=== PATIENT | male | born 1970 | race Asian ===

== ENCOUNTER → 2020-04-01 | Outpatient (REF) | payer OTHER, SELFPAY | LOC: M WUC 11:21 | PROVIDERS: ATTEND Nurse Practitioner Family | DX: Z20.828 Contact with and (suspected) exposure to other viral communicable diseases (principal) ==

== ENCOUNTER 2021-03-19 18:58 | Emergency (ER) | payer OTHER ==
[~2021-03-19] VITALS: Ht 167.6 cm; Wt 55.5 kg
--- NOTE | 2021-03-19 20:14 | REP ---
INDICATION: RIGHT GROIN AND TESTICLULAR PAIN COMPARISON: None. TECHNIQUE: Hong scale and color Doppler evaluation using linear and curved array transducer with color Doppler evaluation. FINDINGS: The testicles and epididymi are relatively normal in contour, size, echogenicity, vascularity and overall appearance. Incidental 3 mm left epididymal head cyst and 4 mm cyst at the appendix testis. There is no evidence for intratesticular mass lesion, infectious/inflammatory process, or torsion. No obvious hydroceles or varicoceles are identified. Right testicle measures 4.3 x 1.9 x 2.6 cm. Left testicle measures 4.3 x 1.5 x 2.5 cm. IMPRESSION: No obvious acute scrotal pathology appreciated. <Electronically signed by Bradly Kramer > 03/19/212009
--- NOTE | 2021-03-19 20:16 | REP ---
INDICATION: pain right inguinal side COMPARISON: None. TECHNIQUE: Grayscale B-mode ultrasound using linear high-frequency transducer. FINDINGS: Ultrasound examination of the right inguinal region demonstrates a very small non reducible fat containing hernia with a peritoneal defect measuring roughly 12-13 mm and essentially unchanged on Valsalva. Ultrasound examination of the contralateral left inguinal region for comparison demonstrates normal structures without hernia. IMPRESSION: Small fat containing right inguinal hernia. <Electronically signed by Bradly Kramer > 03/19/212011
[2021-03-19] MEDS ORDERED: KETOROLAC 60MG 2ML VIAL IM ONE (21:55)
[2021-03-19] MEDS ORDERED: NAPR-837 PO (21:57)
[2021-03-19 22:48] VITALS: BP 157/84
== END 2021-03-19 22:55 | disposition home or self-care (01) ==
LOC: M ED 18:58 → MERGE 18:58 → M ED 22:55
DX: K40.90 Unilateral inguinal hernia, without obstruction or gangrene, not specified as recurrent (principal)
CPT/HCPCS: 76857; 76870; 93976; 96372; 99283; J1885

== ENCOUNTER → 2021-04-12 | Outpatient (CLI) | payer OTHER ==
[~2021-04-12] MED LIST: NAPR-837 PO
[2021-04-12 12:05] LABS: BASO # 0.1 10^3/uL (0.0-0.2); BASO % 0.5 % (0.0-1.0); EOS # 0.6 10^3/uL (0.0-0.5); HEMATOCRIT 45.6 % (42.0-52.0); HEMOGLOBIN 15.4 g/dl (13.5-17.5); LYMPH # 2.2 10^3/uL (1.5-5.0); LYMPH % 23.9 % (24.0-44.0); MEAN CORPUSCULAR HEMOGLOBIN 31.4 pg (27.0-33.0); MEAN CORPUSCULAR HGB CONC 33.8 g/dl (32.0-36.5); MEAN CORPUSCULAR VOLUME 92.9 fl (80.0-96.0); MONO # 0.4 10^3/uL (0.0-0.8); MONO % 4.1 % (2.0-8.0); NEUTROPHILS # 6.1 10^3/uL (1.5-8.5); NEUTROPHILS % 65.2 % (36.0-66.0); PLATELET COUNT, AUTOMATED 246 10^3/uL (150-450); RED BLOOD COUNT 4.91 10^6/uL (4.30-6.10); WHITE BLOOD COUNT 9.4 10^3/uL (4.0-10.0)
[2021-04-12 12:48] LABS: ALBUMIN 3.8 GM/DL (3.2-5.2); ALT/SGPT 44 U/L (12-78); BILIRUBIN,TOTAL 0.3 MG/DL (0.2-1.0); BLOOD UREA NITROGEN 22 MG/DL (7-18); CALCIUM LEVEL 8.8 MG/DL (8.5-10.1); CARBON DIOXIDE LEVEL 30 MEQ/L (21-32); CHLORIDE LEVEL 105 MEQ/L (98-107); CHOLESTEROL LEVEL 217 MG/DL (<200); CHOLESTEROL RISK RATIO 4.428 (<5); CREATININE FOR GFR 0.89 MG/DL (0.70-1.30); GLOMERULAR FILTRATION RATE > 60.0 (>56); GLUCOSE, FASTING 108 MG/DL (70-100); HDL CHOLESTEROL 49 MG/DL (>40); HEPATITIS B SURFACE ANTIBODY POSITIVE (POSITIVE); LDL CHOLESTEROL 133 MG/DL (<100); NON-HDL-C 168 MG/DL; POTASSIUM SERUM 4.2 MEQ/L (3.5-5.1); SODIUM LEVEL 139 MEQ/L (136-145); TOTAL PROTEIN 7.1 GM/DL (6.4-8.2); TRIGLYCERIDES LEVEL 176 MG/DL (<150)
[2021-04-12 12:55] LABS: HEMOGLOBIN A1c 5.7 %
[2021-04-12 12:57] LABS: HEPATITIS B SURFACE ANTIGEN NEGATIVE (NEGATIVE)
[2021-04-12 13:25] LABS: HEPATITIS C VIRUS ABY INDEX < 0.0 INDEX (<0.8)
[2021-04-13 04:07] LABS: HEPATITIS A IgG TOTAL Positive (Negative); HEPATITIS B CORE ANTIBODY IGG Positive (Negative)
== END ==
LOC: M WUC 09:47
PROVIDERS: ATTEND Nurse Practitioner Family
DX: Z11.3 Encounter for screening for infections with a predominantly sexual mode of transmission (principal); Z12.5 Encounter for screening for malignant neoplasm of prostate; Z00.00 Encounter for general adult medical examination without abnormal findings; Z13.220 Encounter for screening for lipoid disorders

== ENCOUNTER → 2021-06-21 | Outpatient (REF) | payer OTHER ==
[2021-06-21 13:33] LABS: APPEARANCE, URINE CLEAR (CLEAR); BACTERIA, URINE AUTO NEGATIVE (NEGATIVE); BILIRUBIN, URINE AUTO NEGATIVE (NEGATIVE); BLOOD, URINE BLOOD NEGATIVE (NEGATIVE); CALCIUM OXALATE CRYSTALS SMALL; COLOR, URINE YELLOW (YELLOW); GLUCOSE, URINE (UA) AUTO 1+ mg/dL (NEGATIVE); KETONE, URINE AUTO NEGATIVE (NEGATIVE); LEUKOCYTE ESTERASE, URINE AUTO NEGATIVE (NEGATIVE); MUCUS, URINE SMALL (NEGATIVE); NITRITE, URINE AUTO NEGATIVE (NEGATIVE); PROTEIN, URINE AUTO NEGATIVE (NEGATIVE); RBC, URINE AUTO 0 /HPF (0-3); SPECIFIC GRAVITY URINE AUTO 1.018 (1.002-1.035); SQUAMOUS EPITHELIAL CELL UR AU 0 /HPF (0-6); UROBILINOGEN, URINE AUTO 0.2 mg/dL (0.0-2.0); WBC, URINE AUTO 0 /HPF (0-3)
== END ==
LOC: M SMT 13:02
PROVIDERS: ATTEND Urology
DX: N45.1 Epididymitis (principal)

== ENCOUNTER → 2021-09-27 | Outpatient (CLI) | payer OTHER | LOC: M LABSMTC 12:28 | PROVIDERS: ATTEND Anesthesiology | DX: Z01.818 Encounter for other preprocedural examination (principal); Z11.52 Encounter for screening for COVID-19 ==

== ENCOUNTER 2021-10-02 11:41 | Day surgery (SDC) | payer OTHER ==
[~2021-10-02] VITALS: Ht 167.6 cm; Wt 53.3 kg
[~2021-10-02 11:41] MED LIST changes: +NS 1,000 ML IV ONE
--- OUTSIDE RECORDS SUMMARY | 2021-10-02 11:46 | CCD ---
Author Author [facility] Organization [facility] Address Unknown Phone Unavailable Care Team Providers Care Aba Tutor Name Role Phone Charlebois, A Debora RPA C Unavailable Unavailable Charlebois, A Debora RPA C Unavailable Unavailable Charlebois, A Debora RPA C Unavailable Unavailable Charlebois, A Debora RPA C Unavailable Unavailable Charlebois, A Debora RPA C Unavailable Unavailable Charlebois, A Debora RPA C Unavailable Unavailable Charlebois, A Debora RPA C Unavailable Unavailable Charlebois, A Debora RPA C Unavailable Unavailable Charlebois, A Debora RPA C Unavailable Unavailable Charlebois, A Debora RPA C Unavailable Unavailable Charlebois, A Debora RPA C Unavailable Unavailable Charlebois, A Debora RPA C Unavailable Unavailable Charlebois, A Debora RPA C Unavailable Unavailable Charlebois, A Debora RPA C Unavailable Unavailable Charlebois, A Debora RPA C Unavailable Unavailable Charlebois, A Debora RPA C Unavailable Unavailable Charlebois, A Debora RPA C Unavailable Unavailable Charlebois, A Debora RPA C Unavailable Unavailable Charlebois, A Debora RPA C Unavailable Unavailable Charlebois, A Debora RPA C Unavailable Unavailable Charlebois, A Debora RPA C Unavailable Unavailable Charlebois, A Debora RPA C Unavailable Unavailable Charlebois, A Debora RPA C Unavailable Unavailable Charlebois, A Debora RPA C Unavailable Unavailable Charlebois, A Debora RPA C Unavailable Unavailable Charlebois, A Debora RPA C Unavailable Unavailable Charlebois, A Debora RPA C Unavailable Unavailable Charlebois, A Debora RPA C Unavailable Unavailable Charlebois, A Debora RPA C Unavailable Unavailable Charlebois, A Debora RPA C Unavailable Unavailable Charlebois, A Debora RPA C Unavailable Unavailable Charlebois, A Debora RPA C Unavailable Unavailable Charlebois, A Debora RPA C Unavailable Unavailable Paolo Zamudio JR, MD Unavailable Unavailable Paolo Zamudio JR, MD Unavailable Unavailable Paolo Zamudio JR, MD Unavailable Unavailable Paolo Zamudio JR, MD Unavailable Unavailable Paolo Zamudio JR, MD Unavailable Unavailable Paolo Zamudio JR, MD Unavailable Unavailable Poalo Zamudio JR, MD Unavailable Unavailable Paolo Zamudio JR, MD Unavailable Unavailable Paolo Zamudio JR, MD Unavailable Unavailable Paolo Zamudio JR, MD Unavailable Unavailable Paolo Zamudio JR, MD Unavailable Unavailable Paolo Zamudio JR, MD Unavailable Unavailable Paolo Zamudio JR, MD Unavailable Unavailable Paolo Zamudio JR, MD Unavailable Unavailable Paolo Zamudio JR, MD Unavailable Unavailable Paolo Zamudio JR, MD Unavailable Unavailable Paolo Zamudio JR, MD Unavailable Unavailable Paolo Zamudio JR, MD Unavailable Unavailable Paolo Zamudio JR, MD Unavailable Unavailable Paolo Zamudio JR, MD Unavailable Unavailable Paolo Zamudio JR, MD Unavailable Unavailable Paolo Zamudio JR, MD Unavailable Unavailable Paolo Zamudio JR, MD Unavailable Unavailable Paolo Zamudio JR, MD Unavailable Unavailable Paolo Zamudio JR, MD Unavailable Unavailable Paolo Zamudio JR, MD Unavailable Unavailable Paolo Zamudio JR, MD Unavailable Unavailable Paolo Zamudio JR, MD Unavailable Unavailable Paolo Zamudio JR, MD Unavailable Unavailable Paolo Zamudio JR, MD Unavailable Unavailable Paolo Zamudio JR, MD Unavailable Unavailable Paolo Zamudio JR, MD Unavailable Unavailable Paolo Zamudio JR, MD Unavailable Unavailable Paolo Zamudio JR, MD Unavailable Unavailable Paolo Zamudio JR, MD Unavailable Unavailable Paolo Zamudio JR, MD Unavailable Unavailable Paolo Zamudio JR, MD Unavailable Unavailable Paolo Zamudio JR, MD Unavailable Unavailable Robb JR, J Kevin MD Unavailable Unavailable Robb JR, J Kevin MD Unavailable Unavailable Robb JR, J Kevin MD Unavailable Unavailable Robb JR, J Kevin MD Unavailable Unavailable Robb JR, J Kevin MD Unavailable Unavailable Robb JR, J Kevin MD Unavailable Unavailable Robb JR, J Kevin MD Unavailable Unavailable Robb JR, J Kevin MD Unavailable Unavailable Robb JR, J Kevin MD Unavailable Unavailable Robb JR, J Kevin MD Unavailable Unavailable Robb JR, J Kevin MD Unavailable Unavailable Robb JR, J Kevin MD Unavailable Unavailable Robb JR, J Kvein MD Unavailable Unavailable Robb JR, J Kevin MD Unavailable Unavailable Robb JR, J Kevin MD Unavailable Unavailable Robb JR, J Kevin MD Unavailable Unavailable Robb JR, J Kevin MD Unavailable Unavailable Robb JR, J Kevin MD Unavailable Unavailable Re-disclosure Warning The records that you are about to access may contain information from federally-assisted alcohol or drug abuse programs. If such information is present, then the following federally mandated warning applies: This information has been disclosed to you from records protected by federal confidentiality rules (42 CFR part 2). The federal rules prohibit you from making any further disclosure of this information unless further disclosure is expressly permitted by the written consent of the person to whom it pertains or as otherwise permitted by 42 CFR part 2. A general authorization for the release of medical or other information is NOT sufficient for this purpose. The Federal rules restrict any use of the information to criminally investigate or prosecute any alcohol or drug abuse patient.The records that you are about to access may contain highly sensitive health information, the redisclosure of which is protected by Article 27-F of the [facility] Public Health law. If you continue you may have access to information: Regarding HIV / AIDS; Provided by facilities licensed or operated by the [facility] Office of Mental Health; or Provided by the [facility] Office for People With Developmental Disabilities. If such information is present, then the following [facility] mandated warning applies: This information has been disclosed to you from confidential records which are protected by state law. State law prohibits you from making any further disclosure of this information without the specific written consent of the person to whom it pertains, or as otherwise permitted by law. Any unauthorized further disclosure in violation of state law may result in a fine or intermediate sentence or both. A general authorization for the release of medical or other information is NOT sufficient authorization for further disc losure. Encounters Encounter Providers Location Date Indications Data Source(s ) Outpatient Attender: Debora Winnie Burris/Emily/Ignacio stephens/Janine 06/22/2021 08:30:00 AM EDT MEDENT ([facility] PRICILA Novak) [place] [address] [address] 06/21/2021 12:00:00 AM EDT eCW1 ([facility]) [place] [address] [address] 05/24/2021 12:00:00 AM EDT eCW1 ([facility]) [place] [address] [facility] [address] 05/01/2021 12:00:00 AM EDT eCW1 ([facility]) Unknown [address] [facility] [address] 04/28/2021 12:00:00 AM EDT eCW1 ([facility]) Outpatient Attender: Kevin Burris/Emily/Eric/Karolina dl 04/19/2021 11:15:00 AM EDT MEDENT ([facility] PRICIAL Ford) [place] [address] [facility] [address] 04/14/2021 12:00:00 AM EDT eCW1 ([facility]) [place] [address] [facility] [address] 04/13/2021 12:00:00 AM EDT eCW1 ([facility]) [place] [address] [facility] [address] 04/10/2021 12:00:00 AM EDT eCW1 ([facility]) [place] [address] [facility] [address] 04/10/2021 12:00:00 AM EDT eCW1 ([facility]) Immunizations Vaccine Date Status Description Data Source(s) COVID-19 VACCINE Moderna 04/06/2021 12:00:00 AM EDT completed [facility] Vaccine Series Complete: YESThis Data wa s Submitted to [facility] Via [employer]. COVID-19 VACCINE Moderna 03/09/2021 12:00:00 AM EDT completed [facility] Vaccine Series Complete: NOThis Data was Submitted to [facility] Via [employer]. Medications Medication Brand Name Start Date Product Form Dose Route Admi nistrative Instructions Pharmacy Instructions Status Indications Reaction Description Data Source(s) Omeprazole 20 MG Delayed Release Oral Capsule Omeprazole 06/22/2021 12:00:00 AM EDT ORAL active MEDENT ([facility], ) Magnesium Hydroxide 80 MG/ML Oral Suspension Milk Of Magnesi a 06/22/2021 12:00:00 AM EDT ORAL active M EDENT ([facility], ) POLYETHYLENE GLYCOL 3350 142 MG/ML Oral Solution [Miralax] M iralax 06/22/2021 12:00:00 AM EDT active M EDENT ([facility], ) Sulfamethoxazole 800 MG / Trimethoprim 1 60 MG Oral Tablet [Bactrim] Bactrim DS 800-160 MG Bactrim DS 800-160 MG 06/21/2021 12:00:00 AM EDT 1.0 {table t} active Bactrim DS 800-160 MG eCW1 ( [facility]) Sulfamethoxazole 800 MG / Trimethoprim 1 60 MG Oral Tablet [Bactrim] Bactrim DS 800-160 MG Bactrim DS 800-160 MG 06/21/2021 12:00:00 AM EDT 1.0 {table t} active Bactrim DS 800-160 MG eCW1 ( [facility]) No Active Medications 05/29/2021 12:00:00 AM EDT completed MEDENT ([facility], ) Sulfamethoxazole 800 MG / Trimethoprim 1 60 MG Oral Tablet [Bactrim] Bactrim DS 800-160 MG Bactrim DS 800-160 MG 05/24/2021 12:00:00 AM EDT 1.0 {table t} active Bactrim DS 800-160 MG eCW1 ( [facility]) Sulfamethoxazole 800 MG / Trimethoprim 1 60 MG Oral Tablet [Bactrim] Bactrim DS 800-160 MG Bactrim DS 800-160 MG 05/24/2021 12:00:00 AM EDT 1.0 {table t} active Bactrim DS 800-160 MG eCW1 ( [facility]) Ciprofloxacin 500 MG Oral Tablet [Cipro] Cipro 04/19/2021 12:00: 00 AM EDT ORAL completed MEDENT ([facility], ) Ciprofloxacin 250 MG Oral Tablet [Cipro] Cipro 04/19/2021 12:00: 00 AM EDT ORAL completed MEDENT ([facility]) No Active Medications 04/19/2021 12:00:00 AM EDT completed MEDENT ([facility]) Insurance Providers Payer name Policy type / Coverage type Policy ID Covered libertarian ID Covered libertarian's relationship to abarca Policy Abarca Plan Information [facility] [id number] SP [id number] [facility] [id number] SP [id number] [id number] [employer]SA UNINSURED FUND [id number] SP [id number] SELF PAY ONLY [id number] SP [id number] Problems, Conditions, and Diagnoses No Information Surgeries/Procedures Procedure Description Date Indications Data Source(s) OFFICE OUTPATIENT NEW 45 MINUTES 06/22/2021 12:00:00 A M EDT MEDENT ([facility]) OFFICE OUTPATIENT NEW 45 MINUTES 04/19/2021 12:00:00 A M EDT MEDENT ([facility]) Results ID Date Data Source [id number] 09/27/2021 10:30:00 AM EST [facility] Name Value Range Interpretation Code Description Data Minda rce(s) Supporting Document(s) SARS-CoV-2 (COVID-19) RNA [Presence] in Respiratory specimen by HAJA with probe detection Not Detected [facility] This lab was ordered by [facility] and reported by [employer] ID Date Data Source UA URINALYSIS 06/21/2021 12:00:00 AM EDT eCW1 ([facility]) Name Value Range Interpretation Code Description Data Minda rce(s) Supporting Document(s) UA URINALYSIS eCW1 ([facility]) ID Date Data Source LIPID PANEL (CARDIAC RISK) 04/12/2021 12:00:00 AM EDT eCW1 ( [facility]) Name Value Range Interpretation Code Description Data Minda rce(s) Supporting Document(s) Cholesterol [Moles/volume] in Serum or Plasma 217 <200 CHOLESTEROL LEVEL eCW1 ([facility]) Cholesterol in HDL [Moles/volume] in Serum or Plasma 49 >40 HDL CHOLESTEROL eCW1 ([facility]) Triglyceride [Mass/volume] in Serum or Plasma by calculation 176 <150 TRIGLYCERIDES LEVEL eCW1 ([facility]) 4.428 <5 CHOLESTEROL RISK RATIO eCW1 ([facility]) Cholesterol in LDL [Mass/volume] in Serum or Plasma by calculation 133 <100 LDL CHOLESTEROL eCW1 ([facility]) 168 NON-HDL-C eCW1 ([facility]) ID Date Data Source [id number] 04/12/2021 12:00:00 AM EDT eCW1 ([facility]) Name Value Range Interpretation Code Description Data Minda rce(s) Supporting Document(s) Hemoglobin A1c/Hemoglobin.total in Blood 5.7 HEMOGLOBIN A1c eCW1 ([facility]) ID Date Data Source HEPATITIS B SURFACE ANTIBODY 04/12/2021 12:00:00 AM EDT eCW1 ([facility]) Name Value Range Interpretation Code Description Data Minda rce(s) Supporting Document(s) POSITIVE POSITIVE HEPATITIS B SURFACE ANTIB ASHISH eCW1 ([facility]) ID Date Data Source HEPATITIS B CORE ANTIBODY IGG 04/12/2021 12:00:00 AM EDT eCW 1 ([facility]) Name Value Range Interpretation Code Description Data Minda rce(s) Supporting Document(s) Positive Negative HEPATITIS B CORE ANTIBODY IGG eCW1 ([facility]) ID Date Data Source HEPATITIS A IgG 04/12/2021 12:00:00 AM EDT eCW1 ([facility]) Name Value Range Interpretation Code Description Data Minda rce(s) Supporting Document(s) Positive Negative HEPATITIS A IgG TOTAL eCW 1 ([facility]) ID Date Data Source PSA SCREENING 04/12/2021 12:00:00 AM EDT eCW1 ([facility]) Name Value Range Interpretation Code Description Data Minda rce(s) Supporting Document(s) 0.97 < 4.00 PSA SCREENING eCW1 ([facility]) ID Date Data Source HEPATITIS C ANTIBODY INDEX 04/12/2021 12:00:00 AM EDT eCW1 ( [facility]) Name Value Range Interpretation Code Description Data Minda rce(s) Supporting Document(s) < 0.0 <0.8 HEPATITIS C VIRUS MORGAN IND EX eCW1 ([facility]) ID Date Data Source HEPATITIS B SURFACE ANTIGEN 04/12/2021 12:00:00 AM EDT eCW1 ([facility]) Name Value Range Interpretation Code Description Data Minda rce(s) Supporting Document(s) NEGATIVE NEGATIVE HEPATITIS B SURFACE ANTIG EN eCW1 ([facility]) ID Date Data Source Comprehensive Metabolic Profile (CMP) 04/12/2021 12:00:00 AM EDT eCW1 ([facility]) Name Value Range Interpretation Code Description Data Minda rce(s) Supporting Document(s) 0.89 0.70-1.30 CREATININE FOR GFR eCW1 ([facility]) 108 70-100 GLUCOSE, FASTING eCW1 ([facility]) 22 7-18 BLOOD UREA NITROGEN eCW1 (On license of [facility]) 4.2 3.5-5.1 POTASSIUM SERUM eCW1 ([facility]) > 60.0 >56 GLOMERULAR FILTRATION RATE eCW 1 ([facility]) 139 136-145 SODIUM LEVEL eCW1 ([facility]) 105 98-107 CHLORIDE LEVEL eCW1 ([facility]) 8.8 8.5-10.1 CALCIUM LEVEL eCW1 ([facility]) 30 21-32 CARBON DIOXIDE LEVEL eCW1 (Replaced by [facility]) 44 12-78 ALT/SGPT eCW1 ([facility]) 144 45-117 ALKALINE PHOSPHATASE eCW1 (Replaced by [facility]) 0.3 0.2-1.0 BILIRUBIN,TOTAL eCW1 ([facility]) 29 7-37 AST/SGOT eCW1 ([facility]) 7.1 6.4-8.2 TOTAL PROTEIN eCW1 ([facility]) 1.2 ALBUMIN/GLOBULIN RATIO eCW1 ([facility]) 3.8 3.2-5.2 ALBUMIN eCW1 ([facility]) ID Date Data Source CBC with Differential 04/12/2021 12:00:00 AM EDT eCW1 ([facility]) Name Value Range Interpretation Code Description Data Minda rce(s) Supporting Document(s) 9.4 4.0-10.0 WHITE BLOOD COUNT eCW1 ([facility]) 4.91 4.30-6.10 RED BLOOD COUNT eCW1 ([facility]) 45.6 42.0-52.0 HEMATOCRIT eCW1 ([facility]) 15.4 13.5-17.5 HEMOGLOBIN eCW1 ([facility]) 92.9 80.0-96.0 MEAN CORPUSCULAR VOLUME e CW1 ([facility]) 246 150-450 PLATELET COUNT, AUTOMATED eCW1 ([facility]) 33.8 32.0-36.5 MEAN CORPUSCULAR HGB CONC eCW1 ([facility]) 31.4 27.0-33.0 MEAN CORPUSCULAR HEMOGLOB IN eCW1 ([facility]) 12.1 11.5-14.5 RED CELL DISTRIBUTION WID TH eCW1 ([facility]) 23.9 24.0-44.0 LYMPH % eCW1 ([facility]) 65.2 36.0-66.0 NEUTROPHILS % eCW1 ([facility]) 4.1 2.0-8.0 MONO % eCW1 ([facility]) 6.0 0.0-3.0 EOS % eCW1 ([facility]) 0.5 0.0-1.0 BASO % eCW1 ([facility]) 6.1 1.5-8.5 NEUTROPHILS # eCW1 ([facility]) 0.4 0.0-0.8 MONO # eCW1 ([facility]) 2.2 1.5-5.0 LYMPH # eCW1 ([facility]) 0.6 0.0-0.5 EOS # eCW1 ([facility]) 0.1 0.0-0.2 BASO # eCW1 ([facility]) Procedure Social History Code Duration Value Status Description Data Source(s ) Smoking 06/21/2021 12:00:00 AM EDT Current Smoker completed Curre nt Smoker eCW1 ([facility]) Smoking 06/21/2021 12:00:00 AM EDT Current Smoker completed Curre nt Smoker eCW1 ([facility]) Smoking 04/10/2021 12:00:00 AM EDT Current Smoker completed Curre nt Smoker eCW1 ([facility]) Smoking 04/10/2021 12:00:00 AM EDT Current Smoker completed Curre nt Smoker eCW1 ([facility]) Smoking 04/10/2021 12:00:00 AM EDT Current Smoker completed Curre nt Smoker eCW1 ([facility]) Smoking 04/10/2021 12:00:00 AM EDT Current Smoker completed Curre nt Smoker eCW1 ([facility]) Smoking 04/10/2021 12:00:00 AM EDT Current Smoker completed Curre nt Smoker eCW1 ([facility]) Smoking 04/10/2021 12:00:00 AM EDT Current Smoker completed Curre nt Smoker eCW1 ([facility]) Vital Signs ID Date Data Source UNK Name Value Range Interpretation Code Description Data Source(s) Systolic blood pressure 110 mm[Hg] 110 mm[Hg] M EDLAURA ([facility], ) Diastolic blood pressure 72 mm[Hg] 72 mm[Hg] MEDLAURA ([facility]) Body height 66 [in_i] 66 [in_i] DONITA ([facility]) 5'6" Body weight 124.00 [lb_av] 124.00 [lb_av] MEDEN T ([facility]) Body mass index (BMI) [Ratio] 20.0 kg/m2 20.0 k g/m2 MEDENT ([facility]) [place] body weight 142 [lb_av] 142 [lb_av] MEDEN T ([facility]) Body weight 56.246 kg 56.246 kg [facility] Body surface area Derived from formula 1.63 m2 1.63 m2 MEDENT ([facility]) Body weight 120 [lb_av] 120 [lb_av] eCW1 ([facility]) Body height 65 [in_i] 65 [in_i] eCW1 ([facility]) Body mass index (BMI) [Ratio] 19.97 kg/m2 19.97 kg/m2 W1 ([facility]) Heart rate 70 /min 70 /min eCW1 ([facility]) Respiratory rate 18 /min 18 /min eCW1 ([facility]) Body temperature 97 [degF] 97 [degF] eCW1 ([facility]) Systolic blood pressure 118 mm[Hg] 118 mm[Hg] e CW1 ([facility]) Diastolic blood pressure 68 mm[Hg] 68 mm[Hg] eCW1 ([facility]) Body weight 121 [lb_av] 121 [lb_av] eCW1 ([facility]) Body height 65 [in_i] 65 [in_i] eCW1 ([facility]) Body mass index (BMI) [Ratio] 20.13 kg/m2 20.13 kg/m2 eCW1 ([facility]) Heart rate 77 /min 77 /min eCW1 ([facility]) Respiratory rate 18 /min 18 /min eCW1 ([facility]) Body temperature 97.1 [degF] 97.1 [degF] eCW1 ( [facility]) Systolic blood pressure 116 mm[Hg] 116 mm[Hg] e CW1 ([facility]) Diastolic blood pressure 72 mm[Hg] 72 mm[Hg] eCW1 ([facility]) Body height 66 [in_i] 66 [in_i] MEDENT ([facility]) 5'6" Body weight 122.12 [lb_av] 122.12 [lb_av] MEDEN T ([facility]) Body mass index (BMI) [Ratio] 19.7 kg/m2 19.7 k g/m2 [facility] ([facility]) [place] body weight 142 [lb_av] 142 [lb_av] MEDEN T ([facility]) Body weight 55.396 kg 55.396 kg MEDENT ([facility]) Body surface area Derived from formula 1.62 m2 1.62 m2 [facility] ([facility]) Diastolic blood pressure 69 mm[Hg] 69 mm[Hg] [facility] ([facility]) Body height 66 [in_i] 66 [in_i] MEDENT ([facility]) 5'6" [place] body weight 142 [lb_av] 142 [lb_av] MEDEN T ([facility]) Body weight 55.396 kg [facility].396 [facility] Body surface area Derived from formula 1.62 m2 1.62 m2 [facility] ([facility]) Systolic blood pressure 104 mm[Hg] 104 mm[Hg] M EDENT ([facility]) Body weight 122.12 [lb_av] 122.12 [lb_av] MEDEN T ([facility]) Body mass index (BMI) [Ratio] 19.7 kg/m2 19.7 k g/m2 [facility] ([facility]) Body weight 96.12 [lb_av] 96.12 [lb_av] eCW1 ([facility]) Body weight 43.6 kg 43.6 kg eCW1 ([facility]) Body height 65 [in_i] 65 [in_i] eCW1 ([facility]) Body mass index (BMI) [Ratio] 15.99 kg/m2 15.99 kg/m2 eCW1 ([facility]) Heart rate 89 /min 89 /min eCW1 ([facility]) Respiratory rate 18 /min 18 /min eCW1 ([facility]) Body temperature 97.5 [degF] 97.5 [degF] eCW1 ( [facility]) Systolic blood pressure 118 mm[Hg] 118 mm[Hg] e CW1 ([facility]) Diastolic blood pressure 76 mm[Hg] 76 mm[Hg] eCW1 ([facility]) Patient Treatment Plan of Care Planned Activity Planned Date Details Description Data Source (s) Sulfamethoxazole 800 MG / Trimethoprim 160 MG Oral Tab let [Bactrim] 06/21/2021 12:00:00 AM EDT eCW1 ([facility]) Sulfamethoxazole 800 MG / Trimethoprim 160 MG Oral Tab let [Bactrim] 06/21/2021 12:00:00 AM EDT eCW1 ([facility])
--- OUTSIDE RECORDS SUMMARY | 2021-10-02 11:46 | CCD ---
Author Author [facility] [employer] Organization [facility] [employer] Address Unknown Phone Unavailable Care Team Providers Care Senior Support Engineer Name Role Phone Dmitry Anderson Unavailable PROBLEMS No Information ALLERGIES No Known Allergies ENCOUNTERS from 1970 to 2021-07-19 Encounter Location Date Provider Diagnosis [facility] [phone] [place] [address] Jun, Dmitry Anderson Chronic epididymitis N45.1 IMMUNIZATIONS No Information SOCIAL HISTORY Tobacco Use: Social History Observation Description Date Details (start date - stop date) Current Smoker Sex Assigned At : Social History Observation Description Sex Assigned At Unknown Language: Question Answer Notes Languages spoken: Other Alcohol Screening: Question Answer Notes Did you have a drink containing alcohol in the past year? Ye s Points 4 Interpretation Positive How many drinks did you have on a typica l day when you were drinking in the past year? 3 or 4 (1 point) How often did you have a drink containing alcohol in t he past year? Two to three times per week (3 points) Tobacco Use: Question Answer Notes Are you a: current smoker REASON FOR REFERRAL No Information VITAL SIGNS Weight 120 lbs Jun, Height 65 in Jun, BMI 19.97 kg/m2 Jun, Heart Rate 70 /min Jun, Respiratory Rate 18 /min Jun, Temperature 97 degrees Fahrenheit Jun, Oximetry 98 Jun, Blood pressure systolic 118 mm Hg Jun, Blood pressure diastolic 68 mm Hg Jun, MEDICATIONS Medication SIG (Take, Route, Frequency, Duration) Notes Start Da te End Date Status Bactrim DS 800-160 MG 1 tablet Orally Twice a day Jun, Active Bactrim DS 800-160 MG 1 tablet Orally Twice a day May, Active PROCEDURES No Information RESULTS Component Value Reference Range UA URINALYSIS Reviewed date:06/22/2021 09:31:47 Interpretation: Performing Lab:[facility], [facility] [address] [facility] [id number] , ,[place] [id number] REASON FOR VISIT 1 mo f/u epidimystitis MEDICAL (GENERAL) HISTORY Type Description Date Medical History Inguinal hernia Medical History Nicotine use disorder Medical History Chronic right epididymitis Surgical History No Surgical history information Goals Section No Information Health Concerns No Information MEDICAL EQUIPMENT No Information MENTAL STATUS No Information FUNCTIONAL STATUS No Information ASSESSMENTS Encounter Date Diagnosis Assessment Notes Treatment Notes Treatm ent Clinical Notes Jun, Chronic epididymitis (ICD-10 - N45.1) PLAN OF TREATMENT Medication Medication Name Sig Start Date Stop Date Bactrim DS 800-160 MG 1 tablet Orally Twice a day Jun, Next Appt Details 4 to 6 weeks Reason:Chronic right epidid ymitis Provider Name:Dmitry Anderson, 2021-07-21 3 08:30:00 AM, [address], , [place], [address], Provider Name:Adrienne Nicole, 2020-10 2-20 07:30:00 AM, [address] [facility], , [place], [address], Follow Up:4 to 6 weeksChronic right epididymitis Insurance Providers Payer Name Payer Address Payer Phone Insured Name Patient Relati onship to Insured Coverage Start Date Coverage End Date [facility] [place] [address] [facility] [phone] [employer] [place] self
[2021-10-02] MEDS ORDERED: propofoL 200 MG/20 ML VIAL As Ordered ONE ×4 (13:11→13:55)
[2021-10-02] MEDS ORDERED: GLYCOPYRROLATE INJ 0.2 MG/ML 2 ML VIAL As Ordered ONE (13:11)
[2021-10-02] MEDS ORDERED: LIDOCAINE 2% 100MG/5ML SDV (FOR ANES.) As Ordered ONE (13:11)
--- NOTE | 2021-10-02 13:41 | ROOR ---
Patient Name: Lev Harris Procedure Date: 10/02/2021 1:18 PM Date of : 1970 Age: 51 Room: [facility] Gender: Male Note Status: Finalized Procedure: Upper GI endoscopy Indications: Epigastric abdominal pain, Heartburn Providers: Derrick Mehta MD Referring MD: Treasure Nicole Requesting Provider: Medicines: Monitored Anesthesia Care Complications: No immediate complications. Procedure: Pre-Anesthesia Assessment: - The heart rate, respiratory rate, oxygen saturations, blood pressure, adequacy of pulmonary ventilation, and response to care were monitored throughout the procedure. The Endoscope was introduced through the mouth, and advanced to the second part of duodenum. The upper GI endoscopy was accomplished without difficulty. The patient tolerated the procedure well. Findings: Mildly severe esophagitis was found in the lower third of the esophagus. Biopsies were taken with a cold forceps for histology. Diffuse mild inflammation characterized by erythema was found in the gastric antrum. Biopsies were taken with a cold forceps for histology. The exam was otherwise without abnormality. Impression: - Mild esophagitis. Biopsied. - Mild gastritis. Biopsied. - The examination was otherwise normal. Recommendation: - Use Prilosec (omeprazole) 20 mg PO daily. (use daily, every day) Procedure Code(s): --- Professional --- 84563, Esophagogastroduodenoscopy, flexible, transoral; with biopsy, single or multiple Diagnosis Code(s): --- Professional --- R12, Heartburn R10.13, Epigastric pain K29.70, Gastritis, unspecified, without bleeding K20.9, Esophagitis, unspecified CPT copyright 2019 [employer]. All rights reserved. The codes documented in this report are preliminary and upon printing estimator review may be revised to meet current compliance requirements. Derrick Mehta MD Derrick Mehta MD 10/02/2021 1:41:02 PM Electronically signed by Derrick Mehta MD Number of Addenda: 0 Note Initiated On: 10/02/2021 1:18 PM Estimated Blood Loss: Estimated blood loss: none.
[2021-10-02] MEDS ORDERED: PHENYLephrine 500MCG 5ML (100MCG/ML) SYRINGE As Ordered ONE (13:50)
--- NOTE | 2021-10-02 13:54 | ROOR ---
Patient Name: Lev Harris Procedure Date: 10/02/2021 1:23 PM Date of : 1970 Age: 51 Room: [facility] Gender: Male Note Status: Finalized Procedure: Colonoscopy Indications: Screening for colorectal malignant neoplasm Providers: Derrick Mehta MD Referring MD: Treasure Nicole Requesting Provider: Medicines: Monitored Anesthesia Care Complications: No immediate complications. Procedure: Pre-Anesthesia Assessment: - The heart rate, respiratory rate, oxygen saturations, blood pressure, adequacy of pulmonary ventilation, and response to care were monitored throughout the procedure. The Colonoscope was introduced through the anus and advanced to the terminal ileum, with identification of the appendiceal orifice and IC valve. The colonoscopy was performed without difficulty. The patient tolerated the procedure well. The quality of the bowel preparation was good. Findings: The perianal and digital rectal examinations were normal. A few medium-mouthed diverticula were found in the ascending colon. Two sessile polyps were found in the sigmoid colon. The polyps were 4 to 5 mm in size. These polyps were removed with a cold snare. Resection and retrieval were complete. Small Internal Hemorrhoids. The exam was otherwise without abnormality on direct and retroflexion views. Impression: - Diverticulosis in the ascending colon. - Two 4 to 5 mm polyps in the sigmoid colon, removed with a cold snare. Resected and retrieved. - Small Internal Hemorrhoids. - The examination was otherwise normal on direct and retroflexion views. Recommendation: - Repeat colonoscopy in 5 years for surveillance. Procedure Code(s): --- Professional --- 88609, Colonoscopy, flexible; with removal of tumor(s), polyp(s), or other lesion(s) by snare technique Diagnosis Code(s): --- Professional --- K57.30, Diverticulosis of large intestine without perforation or abscess without bleeding K63.5, Polyp of colon Z12.11, Encounter for screening for malignant neoplasm of colon CPT copyright 2019 [employer]. All rights reserved. The codes documented in this report are preliminary and upon internal control specialist review may be revised to meet current compliance requirements. Derrick Mehta MD Derrick Mehta MD 10/02/2021 1:53:52 PM Electronically signed by Derrick Mehta MD Number of Addenda: 0 Note Initiated On: 10/02/2021 1:23 PM Estimated Blood Loss: Estimated blood loss: none.
[2021-10-02 14:15] VITALS: BP 120/56
== END 2021-10-02 14:50 | disposition home or self-care (01) ==
LOC: M OPP 11:41
PROVIDERS: ATTEND Internal Medicine Gastroenterology
DX: Z12.11 Encounter for screening for malignant neoplasm of colon (principal); K63.5 Polyp of colon; K57.30 Diverticulosis of large intestine without perforation or abscess without bleeding; K64.8 Other hemorrhoids; K29.70 Gastritis, unspecified, without bleeding; K20.90 Esophagitis, unspecified without bleeding; R10.13 Epigastric pain; F17.210 Nicotine dependence, cigarettes, uncomplicated
CPT/HCPCS: 43239; 45385; 88305; J2370

== ENCOUNTER → 2022-08-24 | Outpatient (CLI) | payer OTHER ==
[~2022-08-24] MED LIST changes: -NS 1,000 ML IV ONE
== END ==
LOC: M SOG 07:51
PROVIDERS: ATTEND Orthopaedic Surgery
DX: M25.512 Pain in left shoulder (principal)